=== PATIENT | female | born 1985 | race Caucasian/White ===

== ENCOUNTER 2022-08-31 04:12 | Day surgery (SDC) | payer OTHER ==
[2022-08-30 09:52] VITALS: BMI 28.1
[2022-08-31] MEDS ORDERED: IODINE/POTASSIUM IODIDE 5%/10% 14 ML BOTTLE NR ONE (10:05)
[2022-08-31] MEDS ORDERED: FERRIC SUBSULFATE 500 ML BOTTLE TP ONE (10:05)
[2022-08-31 11:35] VITALS: RESP 18
[2022-08-31 13:11] VITALS: BP 116/60; PULSE 66; TEMP 98
== END 2022-08-31 12:55 | disposition home or self-care (01) ==
LOC: JASU-SURG 04:12
PROVIDERS: ATTEND Student in an Organized Health Care Education/Training Program
PROC: 0UBC7ZX Excision of Cervix, Via Natural or Artificial Opening, Diagnostic (ICD-10-PCS; principal; 2022-08-31 09:30)
DX: D06.9 Carcinoma in situ of cervix, unspecified (principal)
CPT/HCPCS: 81025; 88305-TC; 88307-TC; 94760

== ENCOUNTER 2023-01-10 22:15 | Emergency (ER) | payer OTHER ==
[2023-01-10 22:21] VITALS: BP 123/73; PULSE 85; RESP 20; TEMP 98.4; BMI 27.4
== END 2023-01-10 23:52 | disposition left against medical advice (07) ==
LOC: JER 22:15
DX: R10.2 Pelvic and perineal pain (principal); W22.8XXA Striking against or struck by other objects, initial encounter; Z53.21 Procedure and treatment not carried out due to patient leaving prior to being seen by health care provider
CPT/HCPCS: 99281-25

== ENCOUNTER 2024-04-02 17:58 | Emergency (ER) | payer OTHER ==
[2024-04-02 18:13] VITALS: TEMP 98.4; BMI 27.1
[2024-04-02] MEDS ORDERED: ACETAMINOPHEN 325 MG TABLET (FP) ONE (19:07)
[2024-04-02] MEDS: ACETAMINOPHEN 325 MG TABLET (FP) PO ONE (19:12)
[2024-04-02 19:34] LABS: PH,URINE 7.5 (5.0-8.0); URINE APPEARANCE CLEAR; URINE BILIRUBIN NEGATIVE (NEGATIVE); URINE COLOR YELLOW; URINE GLUCOSE (UA) NEGATIVE (NEGATIVE); URINE KETONE TRACE (NEGATIVE); URINE LEUK ESTERASE NEGATIVE (NEGATIVE); URINE NITRITE NEGATIVE (NEGATIVE); URINE PROTEIN NEGATIVE (NEGATIVE)
[2024-04-02 22:22] VITALS: BP 134/77; PULSE 70; RESP 20
== END 2024-04-02 22:47 | disposition home or self-care (01) ==
LOC: JER 17:58
DX: T74.11XA Adult physical abuse, confirmed, initial encounter (principal); S50.311A Abrasion of right elbow, initial encounter; S50.812A Abrasion of left forearm, initial encounter; M54.6 Pain in thoracic spine; M79.10 Myalgia, unspecified site; Y07.030 Male partner, current, perpetrator of maltreatment and neglect
CPT/HCPCS: 70450-TC; 72070-TC-FY; 72100-TC-FY; 72125-TC; 72170-TC-FY; 73090-TC-RT-FY; 81003; 84703; 99285-25